=== PATIENT | female | born 1990 | race Hispanic/Latino ===

== ENCOUNTER 2017-05-02 12:55 | Inpatient (IN) | payer MEDICAID, OTHER ==
[2017-05-03 03:19] VITALS: BMI 39.3
[2017-05-03] MEDS: Lactated Ringer's 1,000 ML IV SCH ×3 (03:40→18:14)
[2017-05-03] MEDS ORDERED: Promethazine HCl 25 MG/ML VIAL IM PRN (06:05)
[2017-05-03] MEDS ORDERED: Acetaminophen 500 MG TAB PO PRN (06:05)
[2017-05-03] MEDS ORDERED: Ondansetron HCl/PF 4 MG/2 ML Vial IVP PRN (06:05)
--- NOTE | 2017-05-03 06:08 | PDOC.LDHP ---
Labor and Delivery H&P Chief complaint: scheduled induction HPI: 27 yo @ 41wks vis LMP presents for a scheduled induction secondary to post dates. Denies contractions, loss of fluid, vaginal bleeding, vaginal discharge. 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 Current gestational age (weeks): 41 Dating criteria: last menstrual period Grav: 2 Para: 0 (0010) OB History Details: see above Current complications: other (see above) Abnormal US findings: No Past Medical History: none Current medications: pre-joe vitamins, other (acyclovir) Previous surgical history: none Allergies/Adverse Reactions: Allergies Allergy/AdvReac Type Severity Reaction Status Date / Time No Known Allergies Allergy Verified 05/03/17 03:09 Social history: none - Physical Exam Vital signs reviewed and normal: yes General: NAD, resting Heart: RRR Lungs: CTAB Abdomen: gravid Extremeties: trace edema FHT: category 1 - Vaginal Exam cm dilated: 1 Effacement: 25% Station: -3 - OB Labs Antibody Screen: negative HIV: negative RPR: negative HEPSAg: negative GBS: negative Rubella: immune - Assessment L&D Assessment: medically indicated induction (post dates)
[2017-05-03] MEDS: Misoprostol 100 MCG TAB VAG SCH ×5 (06:19→23:05)
[2017-05-03 06:36] LABS: Hemoglobin 12.2 g/dL (12.0-16.0); Mean Corpuscular HGB CONC 33.9 g/dL (32.0-36.0); Mean Corpuscular Hemoglobin 27.9 pg (27.0-31.0); Mean Corpuscular Volume 82.3 fl (81.0-99.0); Mean Platelet Volume 7.5 fL (7.4-10.4); Platelet Count 270 thou/uL (130-400); Red Blood Cell (RBC) Count 4.39 mill/uL (4.20-5.40); White Blood Cell (WBC) Count 10.5 thou/uL (4.8-10.8)
[2017-05-03 07:09] LABS: Syphilis Antibody Nonreactive (Nonreactive); Syphilis Antibody Index 0.04 S/CO (<1.00 Non-Reactive)
[2017-05-03 09:00] LABS: HBSAg Index 0.21 S/CO (0-0.99); Hep B Surf Ag Non-Reactive S/CO (NonReactive)
--- NOTE | 2017-05-03 11:53 | PDOC.LDPN ---
Labor & Delivery Progress Note - Objective Vital signs reviewed and normal: yes General: NAD SVE: 1/70%/-2 FHT: category 1 [place] contractions every: q5-7 min, irregular - Assessment (1) Term Code(s): Z34.80 - ENCOUNTER FOR SUPRVSN OF NORMAL , UNSP TRIMESTER Current Visit: Yes Status: Acute -: Given Stadol and more comfortable with SVE. Has minimal change. Second cytotec placed. Continue current care. Category 1 FHTs.
--- NOTE | 2017-05-03 18:11 | PDOC.LDPN ---
Labor & Delivery Progress Note - Subjective Subjective: comfortable - Objective Vital signs reviewed and normal: yes General: NAD SVE: 1/70%/-2 FHT: category 1 [place] contractions every: irregular - Assessment (1) Term Code(s): Z34.80 - ENCOUNTER FOR SUPRVSN OF NORMAL , UNSP TRIMESTER Current Visit: Yes Status: Acute Plan: continue plan of care (Third cytotec placed at 16:30. Plan to nrecheck in 4 hours if not significant change, will rest for 4-6 hours, allow diet. And restart cytotec for 1 more dose.)
--- NOTE | 2017-05-03 21:34 | PDOC.LDPN ---
Labor & Delivery Progress Note - Subjective Subjective: comfortable - Objective Vital signs reviewed and normal: yes General: NAD Uterine fundus: non tender Dilation: 1 Effacement: 75% Station: -3 FHT: category 1 [place] contractions every: not barbie Plan: other -: Plan: Ordered a regular diet. We will hold the cytotec at this time and recheck the patient at 0200. Pt can eat, walk, shower etc. Will recheck at 0200 and if unchanged. Plan for a scheduled csection in the AM.
[2017-05-04] MEDS: Misoprostol 100 MCG TAB VAG SCH ×4 (01:22→21:07)
--- NOTE | 2017-05-04 02:18 | PDOC.LDPN ---
Labor & Delivery Progress Note - Subjective Subjective: comfortable - Objective Vital signs reviewed and normal: yes General: NAD Dilation: 1 Effacement: 75% Station: -3 [place] contractions every: not barbie Plan: labor augmentation (cytotec placed @ 0100. Plan to recheck patient at 0600. If unchanged, will plan for a csection at that time.)
[2017-05-04] MEDS: Lactated Ringer's 1,000 ML IV SCH ×2 (06:04→21:08)
--- NOTE | 2017-05-04 08:45 | PDOC.LDPN ---
Labor & Delivery Progress Note - Objective Vital signs reviewed and normal: yes General: NAD SVE: refused FHT: category 1 [place] contractions every: irregular - Assessment (1) Term Code(s): Z34.80 - ENCOUNTER FOR SUPRVSN OF NORMAL , UNSP TRIMESTER Current Visit: Yes Status: Acute -: Discussed situation with patient and mother. No cervical change noted after 4 doses of cytotec. Discussed possibility of large , abnormal position of vertex. Patient asked about option for waiting. Discussed that this could be possibility. Discussed that situation may not change with waiting and baby would continue to grow. Discussed increased risk with approaching 42 weeks. Patient endorsed that she has anxiety. Discussed process/anesthesia for C- section. Discussed options for medication after delivery of baby. Patient verbalized understanding and wishes to proceed with .
[2017-05-04] MEDS ORDERED: CEFAZOLIN/Water 2 GM/20 ML SYRINGE ONE (09:04)
[2017-05-04] MEDS ORDERED: Bicitra 30 ML UDCUP ONE (09:04)
[2017-05-04] MEDS ORDERED: Ketorolac Tromethamine 30 MG/ML VIAL ONE ×2 (09:08→09:14)
[2017-05-04] MEDS ORDERED: PHENYLEPHRINE-NS 100 MCG/ML 10 ML SYRINGE ONE ×2 (09:08→09:14)
[2017-05-04] MEDS ORDERED: Ondansetron HCl/PF 4 MG/2 ML Vial ONE ×2 (09:08→09:14)
[2017-05-04] MEDS ORDERED: Oxytocin 10 UNITS/ML VIAL ONE (09:14)
[2017-05-04] MEDS ORDERED: Morphine PF 1 MG/ML SYR ONE (09:15)
[2017-05-04] MEDS ORDERED: Meperidine HCl/PF 25 MG/ML VIAL SLOW IVP PRN (10:49)
[2017-05-04] MEDS ORDERED: HYDROmorphone 2 MG/ML VIAL SLOW IVP PRN (10:49)
[2017-05-04] MEDS ORDERED: Ondansetron HCl/PF 4 MG/2 ML Vial IVP PRN ×2 (10:49→14:53)
[2017-05-04] MEDS ORDERED: CEFAZOLIN/Water 2 GM/20 ML SYRINGE SLOW IVP SCH (11:00)
[2017-05-04] MEDS ORDERED: Bicitra 30 ML UDCUP PO SCH (11:00)
[2017-05-04] MEDS ORDERED: Ketorolac Tromethamine 30 MG/ML VIAL IVP SCH (11:00)
--- NOTE | 2017-05-04 12:20 | PDOC.OPDEL ---
OB Operative/Delivery Note Delivery Dr/Surgeon: Stewart Guerrier DO Assist: Verna Santos MD Pre-Delivery Diagnosis: other (Failed induction) Procedure/Post Delivery Dx: primary low transverse CS Weeks gestation: 41 Anesthesia: spinal - Findings A Sex: female Weight: 3.742 kg - 1 min: 8 - 5 min: 9 - Additional Findings/Plan Placenta delivered: manual removal findings: low transverse hysterotomy without extension (See dictated note for full details) Estimated blood loss: 800 mL Post delivery plan: routine recovery
[2017-05-04] MEDS ORDERED: Ibuprofen 800 MG TAB PO SCH (14:00)
[2017-05-04] MEDS ORDERED: LR w/ Pitocin 40 units/1000 ML BAG IV SCH (14:17)
[2017-05-04] MEDS ORDERED: Ketorolac Tromethamine 30 MG/ML VIAL IVP PRN (14:53)
[2017-05-04] MEDS ORDERED: diphenhydrAMINE 50 MG/ML VIAL IVP PRN (14:53)
[2017-05-04] MEDS ORDERED: Promethazine HCl 25 MG SUPP PR PRN (14:53)
[2017-05-04] MEDS ORDERED: Naloxone HCl 0.4 mg/ml Vial IV PRN (14:53)
[2017-05-04] MEDS ORDERED: Promethazine HCl 25 MG/ML VIAL IM PRN (14:53)
[2017-05-04] MEDS ORDERED: Eucerin (Mineral Oil/Petrolatum,White) 30 gm Jar TOP PRN (14:53)
[2017-05-04] MEDS ORDERED: Naloxone HCl 0.4 mg/ml Vial IVP PRN ×2 (14:53)
[2017-05-04] MEDS ORDERED: Communication Order-Pharmacy FS SCH (15:00)
--- NOTE | 2017-05-04 16:15 | OP ---
DATE OF OPERATION: 05/04/2017 PRIMARY SURGEON: Dr. Chey William RIG SUPERINTENDENT SURGEON: Dr. Verna Santos PROCEDURE: Primary low transverse section. PREOPERATIVE DIAGNOSES: 1. Intrauterine at 41 weeks. 2. Arrest of dilation. 3. 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 POSTOPERATIVE DIAGNOSES: 1. Intrauterine at 41 weeks. 2. Arrest of dilation. 3. 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 ANESTHESIA: Epidural. ESTIMATED BLOOD LOSS: 800 mL COMPLICATIONS: None. FINDINGS: Female infant in cephalic OP presentation, Apgars 8 and 9 at 1 and 5 minutes. Normal uterus, tubes, and ovaries were noted. INDICATIONS: The patient is a 27-year-old 1, para 0 female who had intermittent care throughout her . complications including herpes simplex virus infection with an outbreak at 38 weeks, treated appropriately with acyclovir and on suppressive therapy. She presented for postdates induction at 41 weeks and after six doses of Cytotec over 36 hours made no cervical change. Options were discussed with patient including discharge home with close surveillance and repeat induction at 42 weeks. Patient and physicians agreed that pursuing a primary low transverse section was the best option at this time. Procedure was described to patient in detail including possible risks of bleeding, infection, injury to surrounding organs, and the possible need for further surgery and informed consent was obtained prior to proceeding with the procedure. PROCEDURE: The patient was taken to the operating room where spinal anesthesia was placed. The patient was prepped and draped in sterile fashion in dorsal supine position with a left tilt. Pfannenstiel incision was made with a scalpel and carried to the level of the fascia. The subcutaneous tissue was dissected off of the fascia bluntly. The fascia was incised in the midline with the scalpel and the fasciotomy was extended laterally using Wilde scissors. Jocy clamps were used to grasp the superior aspect of the fascial incision, which was elevated and underlying rectus muscles were dissected off bluntly and sharply with Wilde scissors in the midline. The inferior aspect of the fascial incision was then grasped with Jocy's in a similar fashion and the underlying rectus muscles were dissected off bluntly and using the Wilde scissors in the midline. The peritoneum was was entered bluntly and extended superiorly with manual retraction with good visualization of the bladder and the uterus. The bladder blade was inserted. The vesicouterine peritoneum was identified and entered sharply using Metzenbaum scissors to create a bladder flap. The bladder blade was then reinserted. The lower uterine segment was incised in a transverse fashion using the scalpel and extended using manual traction. Amniotomy was performed with an Allis and meconium stained fluid was noted. The was found to be in OP position. The occiput was brought to the hysterotomy but was not able to be delivered despite several attempts with fundal pressure. The vacuum was placed on the occiput at the appropriate flexion point, maternal tissue was not involved in the suction and the vacuum was advanced to green level pressure. Pressure was then given fundally with traction on the vacuum and the 's head was delivered easily within a matter of seconds. The rest of the was delivered without difficulty. The nose and mouth were bulb suctioned. The cord was clamped and cut and the was handed to the waiting neonatology team. Cord blood was obtained and the placenta was removed spontaneously. It was intact with three-vessel cord noted. The uterus was exteriorized and curetted with a dry lap. No extensions were identified at the apices of the hysterotomy. The hysterotomy was repaired with 0 Vicryl suture in a running locking fashion. A second imbricating layer was then done with an 0 Vicryl suture in a running, non-locking, vertical fashion. A small area of bleeding was noted after the imbricating layer in the midline which then resolved after placement of 2 [id number] sutures with an 0 Vicryl suture. Hemostasis was then achieved. The posterior cul-de-sac was suctioned free of debris and clots and the uterus was internalized. The uterus incision was reexamined and a small area of bleeding was again found in the midline, a single 0 Vicryl [id number] was placed with good hemostasis. The peritoneum was then closed in a running nonlocking fashion with 4-0 Vicryl on a SH needle. The rectus muscles were examined and a small area of bleeding was noted on the right inferior rectus muscle. This was cauterized without difficulty, then the rectus muscle was found to be hemostatic. The fascia was then closed in a running nonlocking fashion with #1 Monocryl suture. After the fasciotomy was closed, the subcutaneous tissue was irrigated and 3 subdermal stitches were placed with a 3-0 plain gut with good approximation of tissue. Per patient request, then a running subcuticular repair of the skin was performed with a 4-0 Vicryl in a running nonlocking fashion with good closure of the skin. Sponge, lap, and instrument counts were correct x2. The patient was stable at the completion of the procedure and was subsequently transferred to recovery room in stable condition. JUSTEN
[2017-05-04] MEDS: Ketorolac Tromethamine 30 MG/ML VIAL IVP PRN (17:26)
[2017-05-04] MEDS: Docusate Calcium (SURFAK) 240 MG CAP PO SCH (21:00)
[2017-05-04] MEDS: Ferrous Sulfate 325 MG TAB PO SCH (21:04)
[2017-05-05] MEDS ORDERED: Lanolin Ointment 7 GM TUBE TOP PRN (00:15)
[2017-05-05] MEDS: Ketorolac Tromethamine 30 MG/ML VIAL IVP PRN (00:18)
[2017-05-05] MEDS: Simethicone Chewable 80 MG TAB PO SCH ×3 (02:10→20:36)
[2017-05-05 06:24] LABS: Hemoglobin 10.4 g/dL (12.0-16.0); Mean Corpuscular HGB CONC 33.6 g/dL (32.0-36.0); Mean Corpuscular Hemoglobin 28.2 pg (27.0-31.0); Mean Platelet Volume 7.2 fL (7.4-10.4); Platelet Count 198 thou/uL (130-400); RBC Distribution Width 13.1 % (11.5-14.5); Red Blood Cell (RBC) Count 3.67 mill/uL (4.20-5.40); White Blood Cell (WBC) Count 10.8 thou/uL (4.8-10.8)
[2017-05-05] MEDS: HYDROcodone/Acetaminophen 5/325 mg Tablet PO PRN ×4 (06:37→20:59)
[2017-05-05] MEDS ORDERED: Adacel (T-DAP) 0.5 ML VIAL IM ONE (09:00)
[2017-05-05] MEDS: Prenatal Vitamin 1 TAB PO SCH (09:23)
[2017-05-05] MEDS: Ferrous Sulfate 325 MG TAB PO SCH (09:23)
[2017-05-05] MEDS: Docusate Calcium (SURFAK) 240 MG CAP PO SCH ×2 (09:23→20:36)
--- NOTE | 2017-05-05 10:32 | PDOC.PP ---
Post Progress Note Post Day #: 1 Subjective: C/o pain at incision site but able to tolerate after pain medication. PO intake tolerated: yes Ambulation: yes Vital Signs (12 hours) Temp Pulse Resp BP 05/05/17 08:00 98.4 F 108 H 20 05/05/17 04:15 98.4 F 108 H 20 103/60 05/05/17 00:15 98.2 F 102 H 22 H 110/65 Weight Weight 97.522 kg - Physical Examination General: NAD Cardiovascular: no m/r/g, RRR Respiratory: clear to auscultation bilaterally, non-labored breathing Abdominal: + bowel sounds, appropriately TTP Deviation from normal: Incision site to be assessed after dressing removed @ 24 hrs postop Fundus firm & at: umbillicus Extremities: negative homans (B) Skin: no rash Neurological: no gross focal deficits Psychiatric: A&Ox3, normal affect Result Diagrams: 05/05/17 05:52 Additional Labs: Post Labs Blood Type O POSITIVE 05/03/17 03:30 Hep Bs Antigen Non-Reactive S/CO (NonReactive) 05/03/17 03:30 (1) Status post primary low transverse section Code(s): Z98.891 - HISTORY OF UTERINE SCAR FROM PREVIOUS SURGERY Status: Acute Comment: -Performed 2/2 failure to dilate -No intraoperative complications -VSS, AM H&H appropriate -Pain reasonably well controlled -Sosa removed without issue -Will evaluate incision later today (2) Term of female Code(s): Z37.0 - SINGLE LIVE Status: Acute Comment: -Continue -learning consultant on case -Discuss contraceptive options further tomorrow or with PCP at PP visit (3) Post-dates , delivered, current hospitalization Code(s): O48.0 - POST-TERM Status: Acute Comment: Failed cytotec induction-->LTCS <Antonio Loja - Last Filed: 05/05/17 10:31> Vital Signs (12 hours) Temp Pulse Resp BP 05/05/17 08:00 98.4 F 108 H 20 05/05/17 04:15 98.4 F 108 H 20 103/60 05/05/17 00:15 98.2 F 102 H 22 H 110/65 Weight Weight 97.522 kg Result Diagrams: 05/05/17 05:52 Additional Labs: Post Labs Blood Type O POSITIVE 05/03/17 03:30 Hep Bs Antigen Non-Reactive S/CO (NonReactive) 05/03/17 03:30 (1) Term Code(s): Z34.80 - ENCOUNTER FOR SUPRVSN OF NORMAL , UNSP TRIMESTER Status: Acute <Verna Santos - Last Filed: 05/05/17 10:45> Attending Addendum - Attending Addendum I personally evaluated the patient and discussed the management with Dr. Loja I agree with the History, Examination, Assessment and Plan documented above with any addition or exceptions noted below- Patient without complaints. Tolerating diet. Afebrile VSS A/P: 1) POD#1 s/p 1* for failed induction- H/H stable; continue routine postop care. <Verna Santos - Last Filed: 05/05/17 10:45>
[2017-05-05] MEDS: Ibuprofen 800 MG TAB PO SCH ×2 (12:39→20:36)
[2017-05-06] MEDS: Simethicone Chewable 80 MG TAB PO SCH ×2 (00:13→08:41)
[2017-05-06] MEDS ORDERED: Milk Of Magnesia 30 ML UDCUP PO PRN (00:44)
[2017-05-06] MEDS: HYDROcodone/Acetaminophen 10/325 mg Tablet PO PRN ×3 (01:13→10:38)
[2017-05-06] MEDS: Ferrous Sulfate 325 MG TAB PO SCH ×2 (02:39→10:39)
[2017-05-06] MEDS: Ibuprofen 800 MG TAB PO SCH (04:26)
[2017-05-06 07:44] VITALS: BP 101/59; TEMP 97.6
--- NOTE | 2017-05-06 07:46 | PDOC.PP ---
Post Progress Note Post Day #: 2 Subjective: Tolerating PO. Moderate amount of pain, better controlled on [place] 10. Ambulating without assistance. Vital Signs (12 hours) Temp Pulse Resp BP BP Pulse Ox 05/06/17 07:43 97.6 F 93 20 101/59 L 05/06/17 04:00 98.4 F 97 20 105/64 05/06/17 00:00 97.7 F 109 H 20 115/63 05/05/17 20:30 97.6 F 104 H 20 100/60 96 Weight Weight 97.522 kg - Physical Examination General: NAD Cardiovascular: no m/r/g, RRR Respiratory: clear to auscultation bilaterally, non-labored breathing Abdominal: + bowel sounds, lochia (wnl), no distention, appropriately TTP Extremities: negative homans (B) Skin: CS incision dry & intact, no rash Neurological: no gross focal deficits Psychiatric: A&Ox3, normal affect Result Diagrams: 05/05/17 05:52 Additional Labs: Post Labs Blood Type O POSITIVE 05/03/17 03:30 Hep Bs Antigen Non-Reactive S/CO (NonReactive) 05/03/17 03:30 (1) Post-dates , delivered, current hospitalization Code(s): O48.0 - POST-TERM Status: Acute Comment: Failed cytotec induction-->LTCS (2) Status post primary low transverse section Code(s): Z98.891 - HISTORY OF UTERINE SCAR FROM PREVIOUS SURGERY Status: Acute Comment: -Performed 2/2 failure to dilate -No intraoperative complications -VSS -Pain well controlled with increase to [place] 10 -Sosa removed without issue -Incision clean, dry and intact -Anticipate dishcarge home today -Routine care -Desires IUD - PCP will be in [place], [place] -Follow up at [facility] in 2 wks <Bre Alcocer - Last Filed: 05/06/17 09:04> Vital Signs (12 hours) Temp Pulse Resp BP 05/06/17 07:43 97.6 F 93 20 101/59 L 05/06/17 04:00 98.4 F 97 20 105/64 05/06/17 00:00 97.7 F 109 H 20 115/63 Weight Weight 97.522 kg Result Diagrams: 05/05/17 05:52 Additional Labs: Post Labs Blood Type O POSITIVE 05/03/17 03:30 Hep Bs Antigen Non-Reactive S/CO (NonReactive) 05/03/17 03:30 <Josef Copeland - Last Filed: 05/06/17 10:25> Attending Addendum - Attending Addendum I personally evaluated the patient and discussed the management with Dr. Valadez I agree with the History, Examination, Assessment and Plan documented above with any addition or exceptions noted below. Pain controlled. david's p.o. afeb. Incision C/D/I. Stable for d/c home. <Josef Copeland - Last Filed: 05/06/17 10:25>
[2017-05-06] MEDS: Prenatal Vitamin 1 TAB PO SCH (08:41)
[2017-05-06] MEDS: Docusate Calcium (SURFAK) 240 MG CAP PO SCH (08:41)
== END 2017-05-06 13:10 | disposition home or self-care (01) | DRG 765 ==
LOC: L&D 05-03 02:40 → 3SW 05-04 14:10
PROVIDERS: ADMIT Family Medicine; ATTEND Family Medicine
PROC: 10D00Z1 Extraction of Products of Conception, Low, Open Approach (ICD-10-PCS; principal; 2017-05-04)
PROC: 3E0R3BZ Introduction of Anesthetic Agent into Spinal Canal, Percutaneous Approach (ICD-10-PCS; 2017-05-04)
PROC: 4A0HXCZ Measurement of Products of Conception, Cardiac Rate, External Approach (ICD-10-PCS; 2017-05-04)
PROC: 10907ZC Drainage of Amniotic Fluid, Therapeutic from Products of Conception, Via Natural or Artificial Opening (ICD-10-PCS; 2017-05-04)
DX: O48.0 Post-term pregnancy (principal); O98.32 Other infections with a predominantly sexual mode of transmission complicating childbirth; O32.4XX1 Maternal care for high head at term, fetus 1; A60.00 Herpesviral infection of urogenital system, unspecified; O61.0 Failed medical induction of labor; Z37.0 Single live birth; Z3A.41 41 weeks gestation of pregnancy
CPT/HCPCS: 36415; 51702; 76815; 85027; 86780; 87340; J0595; J1885; J2274; J2405; J2590

== ENCOUNTER 2019-03-04 13:45 | Emergency (ER) | payer OTHER, SELFPAY ==
[2019-03-04] MEDS ORDERED: Lorazepam 2 MG/ML VIAL ONE (13:51)
[2019-03-04] MEDS ORDERED: Haloperidol Lactate 5 MG/ML VIAL ONE (13:59)
[2019-03-04 14:27] LABS: #Eosinphils 0.1 thou/uL (0.0-0.7); #Monocytes 0.5 thou/uL (0.11-0.59); %Basophils 0.4 % (0.0-1.0); %Eosinophils 2.2 % (0.0-10.0); %Lymphocytes 29.8 % (21.0-51.0); %Monocytes 6.9 % (0.0-10.0); %Neutrophils 60.7 % (42.0-75.0); Hemoglobin 15.1 g/dL (12.0-16.0); Mean Corpuscular HGB CONC 34.7 g/dL (32.0-36.0); Mean Corpuscular Volume 83.4 fL (78.0-98.0); Mean Platelet Volume 7.6 fL (7.4-10.4); Platelet Count 247 thou/uL (130-400); RBC Distribution Width 12.3 % (11.5-14.5); Red Blood Cell (RBC) Count 5.21 mill/uL (4.20-5.40); White Blood Cell (WBC) Count 6.7 thou/uL (4.8-10.8)
[2019-03-04 14:48] LABS: BHCG - Serum Negative (NEGATIVE); Pregs Control Background? CLEAR/WHITE (CLR/WHITE); Pregs Control Bar Appear? YES (CONTROL BAR)
[2019-03-04 14:49] LABS: ALT (SGPT) 15 U/L (8-55); AST (SGOT) 16 U/L (5-34); Acetaminophen Less than 6.0 mcg/mL (10.0-30.0); Albumin 4.4 g/dL (3.5-5.0); Alcohol 183 mg/dL (Less than 10); Alkaline Phosphatase 110 U/L (40-110); Anion Gap 19 mmol/L (10-20); BUN (Urea Nitrogen) 11 mg/dL (7.0-18.7); Bilirubin, Total 0.8 mg/dL (0.2-1.2); CK (CPK) 69 U/L (29-168); Calc. Creatinine Clearance 0 mL/min (70-130); Calcium 8.8 mg/dL (7.8-10.44); Carbon Dioxide 17 mmol/L (22-29); Chloride 108 mmol/L (98-107); Estimated GFR-MDRD Greater than 90; Globulin 3.1 g/dL (2.4-3.5); Glucose 93 mg/dL (70-105); Potassium 3.9 mmol/L (3.5-5.1); Protein, Total 7.5 g/dL (6.0-8.3); Salicylate Less than 8.0 mg/dL (15.0-30.0); Sodium 140 mmol/L (136-145)
[2019-03-04 16:45] LABS: Bacteria/HPF 1+ HPF (None Seen); Bilirubin Negative (Negative); Blood, Urine Negative (Negative); Clarity Clear (Clear); Glucose, Urine (Dipstick) Normal (Negative); Leukocyte 250 Leu/uL (Negative); Mucous/LPF Rare LPF (<2+); Nitrite Negative (Negative); Protein, Urine (Dipstick) Negative (Neg-Trace); RBC/HPF 0-3 HPF (0-3); Urobilinogen Normal mg/dL (Less than 2); WBC/HPF 0-3 HPF (0-3)
[2019-03-04 16:51] LABS: Medtox Reader # READER 4
[2019-03-04 16:52] LABS: Amphetamine Detected (NotDetected); Barbiturates Screen Not Detected (NotDetected); Benzodiazepine Screen Detected (NotDetected); Cocaine Metabolite Screen Not Detected (NotDetected); Medtox Control Line Valid? VALID (VALID); Methadone Not Detected (NotDetected); Methamphetamine Not Detected (NotDetected); Opiate Screen Not Detected (NotDetected); Oxycodone Screen Not Detected (NotDetected); Phencyclidine (PCP) Not Detected (NotDetected); THC/Cannabinoid Screen Not Detected (NotDetected); Tricyclic Screen Not Detected (NotDetected)
== END 2019-03-05 01:05 | disposition home or self-care (01) ==
LOC: ERS 13:45
DX: F32.9 Major depressive disorder, single episode, unspecified (principal); F10.129 Alcohol abuse with intoxication, unspecified; S50.812A Abrasion of left forearm, initial encounter; S70.311A Abrasion, right thigh, initial encounter; X58.XXXA Exposure to other specified factors, initial encounter; Y90.6 Blood alcohol level of 120-199 mg/100 ml
CPT/HCPCS: 36415; 80053; 80306; 80307; 81003; 81015; 82550; 84443; 84703; 85025; 93005; 96372; J1630; J2060

== ENCOUNTER 2019-07-21 09:39 | Emergency (ER) | payer MEDICAID, OTHER | END 2019-07-21 10:43 | disposition home or self-care (01) | LOC: ERS 09:39 | DX: Z20.2 Contact with and (suspected) exposure to infections with a predominantly sexual mode of transmission (principal) | CPT/HCPCS: 99281 ==

== ENCOUNTER 2019-10-10 19:13 | Emergency (ER) | payer OTHER ==
[2019-10-10 20:04] LABS: Bacteria/HPF 4+ HPF (None Seen); Bilirubin Negative (Negative); Blood, Urine 2+ (Negative); Clarity Turbid (Clear); Glucose, Urine (Dipstick) Normal (Negative); Leukocyte 500 Leu/uL (Negative); Mucous/LPF 1+ LPF (<2+); Nitrite 2+ (Negative); Protein, Urine (Dipstick) 50 mg/dL (Neg-Trace); RBC/HPF Greater than 50 HPF (0-3); WBC/HPF Greater than 50 HPF (0-3)
== END 2019-10-10 20:42 | disposition home or self-care (01) ==
LOC: ERS 19:13
DX: N39.0 Urinary tract infection, site not specified (principal); Z79.899 Other long term (current) drug therapy
CPT/HCPCS: 81003; 81015; 99283

== ENCOUNTER 2019-10-19 20:35 | Emergency (ER) | payer OTHER ==
[2019-10-19 21:38] LABS: #Basophils 0.1 thou/uL (0.0-0.2); #Eosinphils 0.2 thou/uL (0.0-0.7); #Lymphocytes 1.9 thou/uL (1.20-3.40); #Monocytes 0.7 thou/uL (0.11-0.59); #Neutrophils 7.3 thou/uL (1.40-6.50); %Basophils 0.6 % (0.0-1.0); %Eosinophils 1.6 % (0.0-10.0); %Lymphocytes 18.8 % (21.0-51.0); %Monocytes 6.7 % (0.0-10.0); %Neutrophils 72.3 % (42.0-75.0); Hemoglobin 13.9 g/dL (12.0-16.0); Mean Corpuscular HGB CONC 33.7 g/dL (32.0-36.0); Mean Corpuscular Hemoglobin 29.3 pg (27.0-31.0); Mean Platelet Volume 7.4 fL (7.4-10.4); Platelet Count 236 thou/uL (130-400); RBC Distribution Width 11.9 % (11.5-14.5); Red Blood Cell (RBC) Count 4.75 mill/uL (4.20-5.40); White Blood Cell (WBC) Count 10.1 thou/uL (4.8-10.8)
[2019-10-19] MEDS ORDERED: Adacel (T-DAP) 0.5 ML SYRINGE ONE (21:57)
[2019-10-19 21:59] LABS: ALT (SGPT) 14 U/L (8-55); AST (SGOT) 13 U/L (5-34); Alkaline Phosphatase 85 U/L (40-110); Anion Gap 13 mmol/L (10-20); BUN (Urea Nitrogen) 16 mg/dL (7.0-18.7); Bilirubin, Total 0.7 mg/dL (0.2-1.2); Calc. Creatinine Clearance 0 mL/min (70-130); Calcium 9.3 mg/dL (7.8-10.44); Carbon Dioxide 24 mmol/L (22-29); Chloride 109 mmol/L (98-107); Estimated GFR-MDRD 86; Glucose 112 mg/dL (70-105); Potassium 4.5 mmol/L (3.5-5.1); Sodium 141 mmol/L (136-145)
[2019-10-19] MEDS ORDERED: Ketorolac Tromethamine 30 MG/ML VIAL ONE (23:26)
[2019-10-19] MEDS ORDERED: Bacitracin 1 PK ONE (23:43)
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
== END 2019-10-19 23:46 | disposition home or self-care (01) ==
LOC: ERS 20:35 → EEVIPCON 20:35 → ERS 23:46
DX: S00.81XA Abrasion of other part of head, initial encounter (principal); R04.0 Epistaxis; Z23 Encounter for immunization; Z79.899 Other long term (current) drug therapy; Y04.0XXA Assault by unarmed brawl or fight, initial encounter
CPT/HCPCS: 36415; 70450; 70486; 72125; 80053; 85025; 90471; 90715; 96372; J1885

== ENCOUNTER 2019-10-26 23:21 | Emergency (ER) | payer OTHER ==
--- NOTE | 2019-10-27 00:01 | RAD ---
XR Chest 1 View Portable History: Chest pain Comparison: None. Findings: Lungs are clear. No pneumothorax or effusion. Cardiac silhouette and mediastinal contours a re within normal limits. No acute osseous abnormality. Impression: No acute intrathoracic abnormality.
[2019-10-27 00:14] LABS: #Basophils 0.1 thou/uL (0.0-0.2); #Eosinphils 0.2 thou/uL (0.0-0.7); #Lymphocytes 2.6 thou/uL (1.20-3.40); #Monocytes 0.5 thou/uL (0.11-0.59); #Neutrophils 5.9 thou/uL (1.40-6.50); %Basophils 0.7 % (0.0-1.0); %Eosinophils 2.3 % (0.0-10.0); %Lymphocytes 27.8 % (21.0-51.0); %Monocytes 5.8 % (0.0-10.0); %Neutrophils 63.5 % (42.0-75.0); Hemoglobin 13.1 g/dL (12.0-16.0); Mean Corpuscular HGB CONC 36.2 g/dL (32.0-36.0); Mean Corpuscular Hemoglobin 30.3 pg (27.0-31.0); Mean Corpuscular Volume 83.9 fL (78.0-98.0); Mean Platelet Volume 7.1 fL (7.4-10.4); Platelet Count 252 thou/uL (130-400); RBC Distribution Width 12.1 % (11.5-14.5); Red Blood Cell (RBC) Count 4.31 mill/uL (4.20-5.40); White Blood Cell (WBC) Count 9.2 thou/uL (4.8-10.8)
[2019-10-27 00:20] LABS: BHCG - Serum Negative (NEGATIVE); Pregs Control Background? CLEAR/WHITE (CLR/WHITE); Pregs Control Bar Appear? YES (CONTROL BAR)
[2019-10-27 00:38] LABS: ALT (SGPT) 18 U/L (8-55); AST (SGOT) 30 U/L (5-34); Alkaline Phosphatase 117 U/L (40-110); Anion Gap 14 mmol/L (10-20); BUN (Urea Nitrogen) 11 mg/dL (7.0-18.7); Bilirubin, Total 0.9 mg/dL (0.2-1.2); Calc. Creatinine Clearance 0 mL/min (70-130); Calcium 8.9 mg/dL (7.8-10.44); Carbon Dioxide 21 mmol/L (22-29); Chloride 106 mmol/L (98-107); Estimated GFR-MDRD Greater than 90; Glucose 104 mg/dL (70-105); Lipase 22 U/L (8-78); Potassium 3.5 mmol/L (3.5-5.1); Sodium 137 mmol/L (136-145)
[2019-10-27] MEDS ORDERED: Ketorolac Tromethamine 30 MG/ML VIAL ONE (00:48)
--- NOTE | 2019-10-27 07:23 | CT ---
PRELIMINARY REPORT/[facility]/EMERGENCY AFTER HOURS PROCEDURE: EXAM: CTA Chest with Intravenous Contrast CLINICAL HISTORY: Patient presents for evaluation for onset of chest pain with a sensation of almost passing out approx imately 2 hours ago TECHNIQUE: Axial CTA images of the chest with intravenous contrast. Three-dimensional MIP/volume rendered reform ations were performed. CONTRAST: With; ISOVUE 370, 60 ML COMPARISON: None provided. FINDINGS: PULMONARY ARTERIES There is no intraluminal filling defect suspicious for PE. AORTA No thoracic aortic aneurysm or dissection. LUNGS Mild bilateral dependent atelectasis. PLEURAL SPACES No pleural effusion. No pneumothorax. HEART AND MEDIASTINUM No cardiomegaly. No significant pericardial effusion. BONES No focal osseous abnormality or acute fracture. UPPER ABDOMEN Images through the upper abdomen are unremarkable. IMPRESSION: 1. There is no intraluminal filling defect suspicious for PE. 2. Mild bilateral dependent atelectasis. ELECTRONICALLY SIGNED BY: Ronaldo Ross MD Oct 27, 2019 1:12:35 AM CDT This report is intended for review by the ordering physician only, in accordance of law. If you recei ve this report in error, please call [facility] at [phone]. FINAL REPORT EMERGENCY AFTER HOURS CTA CHEST WITH CONTRAST: Date: 10/27/2019 FINDINGS/IMPRESSION: I agree with the findings and impression given in the preliminary report per [facility] physici an. No evidence of pulmonary thromboembolism. POS: [facility]
[2019-10-27] MEDS ORDERED: Iopamidol 370 76% 100 ML VIAL ONE (13:37)
== END 2019-10-27 01:37 | disposition home or self-care (01) ==
LOC: ERS 23:21
DX: R07.9 Chest pain, unspecified (principal); F41.9 Anxiety disorder, unspecified; Z79.899 Other long term (current) drug therapy
CPT/HCPCS: 36415; 71045; 71275; 80053; 83690; 84703; 85025; 85379; 93005; 96374; J1885; Q9967

== ENCOUNTER 2019-11-07 19:02 | Emergency (ER) | payer OTHER ==
[2019-11-08 12:40] LABS: SARS-CoV-2 MS2 Positive; SARS-CoV-2 N Gene Negative; SARS-CoV-2 S Gene Negative; SARS-CoV-2 orf1ab Negative
== END 2019-11-07 20:32 | disposition home or self-care (01) ==
LOC: ERS 19:02
DX: J06.9 Acute upper respiratory infection, unspecified (principal); F41.9 Anxiety disorder, unspecified; Z20.828 Contact with and (suspected) exposure to other viral communicable diseases
CPT/HCPCS: 87635; 93005; U0003

== ENCOUNTER 2021-01-30 15:54 | Emergency (ER) | payer OTHER ==
[2021-01-30] MEDS ORDERED: Lorazepam 2 MG/ML VIAL ONE (21:31)
[2021-01-30] MEDS ORDERED: Ziprasidone 20 MG VIAL ONE (21:34)
[2021-01-30] MEDS ORDERED: Sterile Water 10 ML ONE (21:35)
[2021-01-30 22:03] LABS: Bilirubin Negative (Negative); Blood, Urine 1+ (Negative); Clarity Clear (Clear); Glucose, Urine (Dipstick) Normal (Negative); Ketone, Urine Negative (Negative); Leukocyte 75 Leu/uL (Negative); Nitrite Negative (Negative); Protein, Urine (Dipstick) Negative (Neg-Trace); RBC/HPF 0-3 HPF (0-3); Specific Gravity, Urine 1.007 (1.002-1.036); Urobilinogen Normal mg/dL (Less than 2); WBC/HPF 0-3 HPF (0-3)
[2021-01-30 22:04] LABS: Bacteria/HPF 1+ HPF (None Seen); Pregnancy Test - Urine (BHCG) Negative (Negative); Pregu Control Background? CLEAR/WHITE (CLR/WHITE); Pregu Control Bar Appear? YES (CONTROL BAR); Specific Gravity 1.007 (1.002-1.036)
[2021-01-30 22:06] LABS: Amphetamine Not Detected (NotDetected); Barbiturates Screen Not Detected (NotDetected); Benzodiazepine Screen Not Detected (NotDetected); Cocaine Metabolite Screen Not Detected (NotDetected); Methadone Not Detected (NotDetected); Methamphetamine Not Detected (NotDetected); Opiate Screen Not Detected (NotDetected); Oxycodone Screen Not Detected (NotDetected); Phencyclidine (PCP) Not Detected (NotDetected); THC/Cannabinoid Screen Not Detected (NotDetected); Tricyclic Screen Not Detected (NotDetected)
[2021-01-30 22:14] LABS: #Basophils 0.1 thou/uL (0.0-0.2); #Eosinphils 0.2 thou/uL (0.0-0.7); #Monocytes 0.6 thou/uL (0.11-0.59); #Neutrophils 4.6 thou/uL (1.40-6.50); %Eosinophils 1.9 % (0.0-10.0); %Lymphocytes 41.9 % (21.0-51.0); %Monocytes 6.5 % (0.0-10.0); %Neutrophils 48.7 % (42.0-75.0); Hemoglobin 15.2 g/dL (12.0-16.0); Mean Corpuscular HGB CONC 35.1 g/dL (32.0-36.0); Mean Corpuscular Hemoglobin 30.4 pg (27.0-31.0); Mean Corpuscular Volume 86.8 fL (78.0-98.0); Mean Platelet Volume 6.8 fL (7.4-10.4); Platelet Count 301 thou/uL (130-400); RBC Distribution Width 11.9 % (11.5-14.5); Red Blood Cell (RBC) Count 4.99 mill/uL (4.20-5.40); White Blood Cell (WBC) Count 9.4 thou/uL (4.8-10.8)
[2021-01-30 22:37] LABS: ALT (SGPT) 20 U/L (8-55); AST (SGOT) 15 U/L (5-34); Acetaminophen Less than 6.0 mcg/mL (10.0-30.0); Albumin 3.9 g/dL (3.5-5.0); Alcohol 167 mg/dL (Less than 10); Alkaline Phosphatase 90 U/L (40-110); Anion Gap 18 mmol/L (10-20); BUN (Urea Nitrogen) 12 mg/dL (7.0-18.7); Bilirubin, Total 0.3 mg/dL (0.2-1.2); CK (CPK) 66 U/L (29-168); Calc. Creatinine Clearance 0 mL/min (70-130); Calcium 8.8 mg/dL (7.8-10.44); Carbon Dioxide 17 mmol/L (22-29); Chloride 109 mmol/L (98-107); Globulin 3.4 g/dL (2.4-3.5); Glucose 105 mg/dL (70-105); Potassium 4.2 mmol/L (3.5-5.1); Protein, Total 7.3 g/dL (6.0-8.3); Salicylate Less than 8.0 mg/dL (15.0-30.0); Sodium 140 mmol/L (136-145)
[2021-01-30 22:47] LABS: Magnesium 1.9 mg/dL (1.6-2.6)
[2021-01-31 13:36] LABS: SARS-CoV-2 NAA Rapid Test Not Detected (NotDetected)
== END 2021-01-31 15:02 ==
LOC: ERS 15:54
DX: T42.4X2A Poisoning by benzodiazepines, intentional self-harm, initial encounter (principal)
CPT/HCPCS: 36415; 80053; 80306; 80307; 81003; 81015; 81025; 82550; 83735; 84443; 85025; 93005; 96372; J2060; J3486; U0002

== ENCOUNTER 2021-02-28 17:56 | Emergency (ER) | payer OTHER | END 2021-02-28 20:16 | disposition home or self-care (01) | LOC: ERS 17:56 | DX: O20.0 Threatened abortion (principal); Z3A.01 Less than 8 weeks gestation of pregnancy; Z79.899 Other long term (current) drug therapy | CPT/HCPCS: 36415; 84702; 99284 ==

== ENCOUNTER 2021-03-03 02:20 | Emergency (ER) | payer OTHER ==
[2021-03-03 04:00] LABS: BHCG - Serum POSITIVE (NEGATIVE); Pregs Control Background? CLEAR/WHITE (CLR/WHITE); Pregs Control Bar Appear? YES (CONTROL BAR)
[2021-03-03 21:24] LABS: Chlamydia by PCR Not Detected (NotDetected); GC by PCR Not Detected (NotDetected)
== END 2021-03-03 04:56 | disposition home or self-care (01) ==
LOC: ERS 02:20
DX: Z32.01 Encounter for pregnancy test, result positive (principal)
CPT/HCPCS: 36415; 76856; 84702; 84703; 87480; 87491; 87510; 87591; 87660

== ENCOUNTER 2021-03-10 11:24 | Emergency (ER) | payer OTHER ==
[2021-03-10 12:32] LABS: BHCG - Serum POSITIVE (NEGATIVE); Pregs Control Background? CLEAR/WHITE (CLR/WHITE); Pregs Control Bar Appear? YES (CONTROL BAR)
== END 2021-03-10 13:15 | disposition left against medical advice (07) ==
LOC: ERS 11:24
DX: O20.0 Threatened abortion (principal); O23.591 Infection of other part of genital tract in pregnancy, first trimester; B96.89 Other specified bacterial agents as the cause of diseases classified elsewhere
CPT/HCPCS: 36415; 76856; 84702; 84703

== ENCOUNTER 2022-06-11 07:28 | Emergency (ER) | payer OTHER ==
[2022-06-11 08:03] LABS: #Basophils 0.1 thou/uL (0.0-0.2); #Eosinphils 0.3 thou/uL (0.0-0.7); #Lymphocytes 2.7 thou/uL (1.20-3.40); #Monocytes 0.4 thou/uL (0.11-0.59); #Neutrophils 2.6 thou/uL (1.40-6.50); %Basophils 0.9 % (0.0-1.0); %Eosinophils 4.7 % (0.0-10.0); %Lymphocytes 44.3 % (21.0-51.0); %Monocytes 6.2 % (0.0-10.0); Hemoglobin 15.2 g/dL (12.0-16.0); Mean Corpuscular HGB CONC 34.4 g/dL (32.0-36.0); Mean Corpuscular Volume 81.5 fl (78.0-98.0); Mean Platelet Volume 7.4 fL (7.4-10.4); Platelet Count 242 10x3/uL (130-400); RBC Distribution Width 13.6 % (11.5-14.5); Red Blood Cell (RBC) Count 5.44 mill/uL (4.20-5.40)
[2022-06-11] MEDS ORDERED: Ondansetron PF 4 MG/2 ML Vial ONE (08:13)
[2022-06-11] MEDS ORDERED: Dicyclomine 20 MG/2 ML VIAL ONE (08:13)
[2022-06-11] MEDS ORDERED: Ketorolac Tromethamine 30 MG/ML VIAL ONE (08:13)
[2022-06-11 08:14] LABS: BHCG - Serum Negative (NEGATIVE); Pregs Control Background? CLEAR/WHITE (CLR/WHITE); Pregs Control Bar Appear? YES (CONTROL BAR)
[2022-06-11 08:45] LABS: Bilirubin 1+ (Negative); Blood, Urine Negative (Negative); Calcium Oxalate Crystals Rare HPF (None Seen); Glucose, Urine (Dipstick) Normal (Negative); Ketone, Urine Trace mg/dL (Negative); Leukocyte Negative Leu/uL (Negative); Nitrite Negative (Negative); Protein, Urine (Dipstick) 50 mg/dL (Neg-Trace); RBC/HPF 0-3 HPF (0-3); Specific Gravity, Urine 1.029 (1.002-1.036); Squamous Epithelial 21-50 HPF (0-3)
[2022-06-11 08:47] LABS: Bacteria/HPF Rare-Few HPF (None Seen); Clarity Cloudy (Clear)
[2022-06-11 09:04] LABS: ALT (SGPT) 24 U/L (8-55); AST (SGOT) 18 U/L (5-34); Albumin 4.4 g/dL (3.5-5.0); Alkaline Phosphatase 145 U/L (40-110); Anion Gap 16 mmol/L (10-20); BUN (Urea Nitrogen) 8 mg/dL (7.0-18.7); Bilirubin, Total 1.6 mg/dL (0.2-1.2); Calc. Creatinine Clearance 0 mL/min (70-130); Calcium 9.6 mg/dL (7.8-10.44); Carbon Dioxide 23 mmol/L (22-29); Chloride 104 mmol/L (98-107); Estimated GFR 100; Globulin 3.1 g/dL (2.4-3.5); Glucose 97 mg/dL (70-105); Lipase 17 U/L (8-78); Protein, Total 7.5 g/dL (6.0-8.3); Sodium 139 mmol/L (136-145)
[2022-06-11] MEDS ORDERED: Iopamidol-370 76% 500 ML 1 ML ONE (10:22)
== END 2022-06-11 10:00 | disposition home or self-care (01) ==
LOC: ERS 07:28
DX: R10.9 Unspecified abdominal pain (principal); R11.0 Nausea
CPT/HCPCS: 74177; 80053; 81003; 81015; 83690; 84703; 85025; 96361; 96372; 96374; 96375; J1885; J2405; Q9967